=== PATIENT | female | born 1985 | race Caucasian/White ===

== ENCOUNTER 2024-04-03 08:56 | Emergency (ER) | payer BC, SELFPAY ==
[2024-04-03 08:58] VITALS: BP 156/92
--- NOTE | 2024-04-03 10:00 | ED.GENMED ---
History of Present Illness
General
Chief Complaint: Pneumonia Symptoms
Source: patient
Time Seen by Provider: 04/03/24 09:39
History of Present Illness
History of Present Illness:
This patient is a 38-year-old female who really has not been feeling well for about a week. It started on Wednesday with a 'scratchy throat followed by continued scratchy throat, chills, low-grade fever, headache, cough, and mild shortness of breath
that really started on Wednesday and continues. She went to an urgent care on Wednesday and had a COVID flu and strep test all of which were negative. Her symptoms continued particularly cough which prompted her to go to the emergency department
yesterday. She had a COVID and flu test which were negative and a chest x-ray which was consistent with moderate right-sided pneumonia. She was started on doxycycline. She states that she is vomiting posttussive, and worries that she is not
tolerating the antibiotic. This posttussive vomiting started before taking the antibiotic. She is tearful and frustrated that she continues to be sick. She denies chest pain or pressure, abdominal pain, leg swelling, back pain, neck pain
Past History
Past History
ED Past Medical History: HTN and Other (PCOS)
ED Past Surgical History: Other (Tonsillectomy)
Social History
Tobacco: Non-smoker
Alcohol: None
Drug: None
Personal:
Living: with family
Phy Exam
Physical Exam
Physical Exam:
GENERAL: Alert , in no apparent distress
EYE: pupils equal and reactive
NECK: Supple, no significant adenopathy.
ENT: o/p clr, mmm, no stridor, no drool, voice clear, uvula midline.
CARDIAC: Regular rate and rhythm .
LUNGS: Equal breath sounds bilaterally, no acute respiratory distress, slight Rales noted at right upper base, no retractions, speaks in full sentences easily, no wheezing, no rhonchi, no obvious cough
ABDOMEN: Soft, without focal tenderness, no r/g, no cvat
NEUROLOGICAL: Alert and oriented, no focal neuro deficits
SKIN: Warm and dry, skin intact.
MUSCULOSKELETAL: No edema, well perfused.
PSYCH: Normal and appropriate interaction but tearful given frustration of symptoms
Patient presents to the Emergency Department with ___cough
Number and Complexity of Problems Addressed at the Encounter
� Chronic conditions affecting care:
� Acute Exacerbation and/or Progression of Chronic Illness:
� Differential Diagnosis includes: But not limited to worsening pneumonia, PE, pericarditis, pleurisy, etc.
Amount and/or Complexity of Data to be Reviewed and Analyzed
� I performed an independent evaluation of and my interpretation is:
EKG:
CT:
Xrays:
Laboratory Studies: Unremarkable
Other:
� Review of other/old records reveals: Review of chest x-ray images from yesterday from patient's records that she brought with her, patient has an obvious right middle lobe pneumonia, no PTX noted
� Clinical information was obtained by an independent historian:
� Prescriptions/Medications Considered but not given:
� Further testing considered but not performed:
Risk of Complications and/or Morbidity or Mortality of Patient Management
� Social determinants of health affecting care:
� Discussion with other providers (PCP, Hospitalists, Consultants, etc):
� Escalation of care including admission/observation vs risk of discharge considered: Long discussion with patient including risk and benefits of adding antibiotics for potential resistant strep. Ultimate agreement with shared
decision making is to add Augmentin to the doxycycline she is already taking. With her vomiting, she describes it as purely posttussive and not food products. Discussed with her importance of hydration, cough management as an outpatient, continued
doxycycline and adding this medication as well as reasons to return the emergency department importance of close follow-up. Patient is extremely well-appearing, pulse ox remains normal, respiratory rate normal, etc.
Course
Orders/Labs/Results
Orders:
Orders
04/03/24 09:58
Cardiac Monitoring- Treatment ONCE
0.9% Sodium Chloride 1000 ml [Nss] 1,000 ml IV BOLUS
Pulse Ox/cont/shift [RESP] Stat
Quantity: 1
04/03/24 10:26
Basic Metabolic Panel Urgent
Complete Blood Count/No Diff Urgent
04/03/24 11:31
Amoxicillin 875 mg/Clav 125 mg [Augmentin 875 mg/125 mg] 1 tablet PO NOW STA
Abnormal Lab Results
04/03/24
10:26
Glucose 108 H mg/dl
(70-99)
04/03/24 10:26
04/03/24 10:26
Vital Signs
Initial and Last Documented VS:
Initial Vital Signs
Temp Pulse Resp BP Pulse Ox
98.6 F 103 16 156/92 98
04/03/24 08:58 04/03/24 08:58 04/03/24 08:58 04/03/24 08:58 04/03/24 08:58
Last Documented Vital Signs
Temp Pulse Resp BP Pulse Ox
98.6 F 82 16 120/74 96
04/03/24 08:58 04/03/24 10:19 04/03/24 10:19 04/03/24 10:19 04/03/24 10:19
*Critical Care Note
Total Time (30-74mins, 75-104mins- exclusive of procedures): Not Applicable
Update Note
Update Note:
Patient presents to the Emergency Department with
Number and Complexity of Problems Addressed at the Encounter
� Chronic conditions affecting care:
� Acute Exacerbation and/or Progression of Chronic Illness:
� Differential Diagnosis includes:
Amount and/or Complexity of Data to be Reviewed and Analyzed
� I performed an independent evaluation of and my interpretation is:
EKG:
CT:
Xrays:
Laboratory Studies:
Other:
� Review of other/old records reveals:
� Clinical information was obtained by an independent historian:
� Prescriptions/Medications Considered but not given:
� Further testing considered but not performed:
Risk of Complications and/or Morbidity or Mortality of Patient Management
� Social determinants of health affecting care:
� Discussion with other providers (PCP, Hospitalists, Consultants, etc):
� Escalation of care including admission/observation vs risk of discharge considered:
ED Attending Note
-
Portions of this chart may have been created with voice recognition software.� Occasional wrong word or��sound alike� substitutions may have occurred due to the inherent limitations of voice recognition software.
Discharge Plan
Departure
Patient Disposition: Home (Routine Discharge)
Date of Disposition: 04/03/24
Time of Disposition: 11:29
Patient with high blood pressure during this ER visit?: Yes
Condition: Good
Discharge Problem:
Pneumonia
Instructions: Pneumonia, Adult (DC), BLOOD PRESSURE
Prescriptions:
New
amoxicillin-pot clavulanate 875-125 mg tablet
1 tab PO BID Qty: 14 0RF
ondansetron HCl 4 mg tablet
4 mg PO Q8H PRN (Reason: nausea and vomiting) 4 Days Qty: 7 0RF
Referrals:
Torres Moody IV, DO [Family Provider] - Follow up in 2-3 days
Activity Restrictions/Additional Instructions:
IF YOU DEVELOP SHORTNESS OF BREATH, CHEST PAIN, PERSISTENT FEVER, DIZZINESS, SWELLING, GET WORSE, DO NOT GET BETTER OR OTHER WORRISOME SIGNS, PLEASE RETURN TO THE ER IMMEDIATELY!
Interventions
Interventions:
*Risk Screen - Suicide Last Done: 04/03/24 10:19
*General Assessment Last Done: 04/03/24 10:19
*Neglect/Abuse Screening Last Done: 04/03/24 10:19
ED- Fall Risk Assessment Last Done: 04/03/24 10:19
*ED COVID-19 Vaccine History Last Done: 04/03/24 10:19
ED- Cardiac Assessment Last Done: 04/03/24 10:19
ED- Pulmonary Assessment Last Done: 04/03/24 10:19
Discharge Date and Time
Print Language: PU[place] R[place]
[2024-04-03 10:19] VITALS: BP 120/74; BMI 27.3
[2024-04-03] MEDS: NSS 1000 IV (10:26)
[2024-04-03 10:37] LABS: Hematocrit 38.8 % (37.0-47.0); Hemoglobin 13.7 g/dL (12.0-16.0); Mean Corp Hgb Conc. 35.3 g/dL (33.0-37.0); Mean Corpuscular Hgb 30.6 pg (27.0-31.0); Mean Corpuscular Volume 86.6 fL (81.0-99.0); Mean Platelet Volume 10.3 fL (7.4-10.4); Platelet Count 210 10^3/uL (130-400); Red Blood Cell Count 4.48 10^6/uL (4.20-5.40); White Blood Cell Count 6.8 10^3/uL (4.8-10.8)
[2024-04-03 10:59] LABS: Blood Urea Nitrogen 7 mg/dl (7-17); Calcium 8.7 mg/dl (8.4-10.2); Carbon Dioxide 27 mmol/L (22-30); Chloride 100 mmol/L (98-107); Estimated Creatinine Clearance 123 ml/min; Glucose 108 mg/dl (70-99); Potassium 4.3 mmol/L (3.5-5.1); Sodium 135 mmol/L (135-145); eGFR > 60.00
[2024-04-03 11:00] VITALS: BP 107/75
[2024-04-03] MEDS: AUGMENTIN 875 MG/125 MG 1 TABLET PO (11:52)
--- NOTE | 2024-04-03 13:06 | ED.GENMED ---
History of Present Illness
General
Chief Complaint: Pneumonia Symptoms
Time Seen by Provider: 04/03/24 09:39
Past History
Past History
ED Past Medical History: HTN and Other (PCOS)
ED Past Surgical History: Other (Tonsillectomy)
Social History
Tobacco: Non-smoker
Alcohol: None
Drug: None
Personal:
Living: with family
Course
Orders/Labs/Results
Orders:
Orders
04/03/24 09:58
Cardiac Monitoring- Treatment ONCE
0.9% Sodium Chloride 1000 ml [Nss] 1,000 ml IV BOLUS
Pulse Ox/cont/shift [RESP] Stat
Quantity: 1
04/03/24 10:26
Basic Metabolic Panel Urgent
Complete Blood Count/No Diff Urgent
04/03/24 11:31
Amoxicillin 875 mg/Clav 125 mg [Augmentin 875 mg/125 mg] 1 tablet PO NOW STA
Abnormal Lab Results
04/03/24
10:26
Glucose 108 H mg/dl
(70-99)
04/03/24 10:26
04/03/24 10:26
Vital Signs
Initial and Last Documented VS:
Initial Vital Signs
Temp Pulse Resp BP Pulse Ox
98.6 F 103 16 156/92 98
04/03/24 08:58 04/03/24 08:58 04/03/24 08:58 04/03/24 08:58 04/03/24 08:58
Last Documented Vital Signs
Temp Pulse Resp BP Pulse Ox
98.6 F 78 26 107/75 98
04/03/24 08:58 04/03/24 11:45 04/03/24 11:45 04/03/24 11:00 04/03/24 11:45
ED Attending Note
-
Portions of this chart may have been created with voice recognition software.� Occasional wrong word or��sound alike� substitutions may have occurred due to the inherent limitations of voice recognition software.
Discharge Plan
Departure
Patient Disposition: Home (Routine Discharge)
Date of Disposition: 04/03/24
Time of Disposition: 11:29
Patient with high blood pressure during this ER visit?: Yes
Condition: Good
Discharge Problem:
Pneumonia
Instructions: Pneumonia, Adult (DC), BLOOD PRESSURE
Prescriptions:
New
amoxicillin-pot clavulanate 875-125 mg tablet
1 tab PO BID Qty: 14 0RF
ondansetron HCl 4 mg tablet
4 mg PO Q8H PRN (Reason: nausea and vomiting) 4 Days Qty: 7 0RF
Referrals:
Torres Moody IV, DO [Family Provider] - Follow up in 2-3 days
Activity Restrictions/Additional Instructions:
IF YOU DEVELOP SHORTNESS OF BREATH, CHEST PAIN, PERSISTENT FEVER, DIZZINESS, SWELLING, GET WORSE, DO NOT GET BETTER OR OTHER WORRISOME SIGNS, PLEASE RETURN TO THE ER IMMEDIATELY!
Interventions
Interventions:
*Risk Screen - Suicide Last Done: 04/03/24 10:19
*General Assessment Last Done: 04/03/24 10:19
*Neglect/Abuse Screening Last Done: 04/03/24 10:19
ED- Fall Risk Assessment Last Done: 04/03/24 10:19
*ED COVID-19 Vaccine History Last Done: 04/03/24 10:19
*Nursing Disposition Last Done: 04/03/24 12:04
ED- Cardiac Assessment Last Done: 04/03/24 10:19
ED- Pulmonary Assessment Last Done: 04/03/24 10:19
Discharge Date and Time
Discharge Date/Time: 04/03/24 12:10
Print Language: HONDURAN
== END 2024-04-03 12:10 | disposition home or self-care (01) ==
LOC: EMR 08:56
PROVIDERS: EMERGENCY PHYSICIAN Emergency Medicine; FAMILY PHYSICIAN Family Medicine
DX: J18.9 Pneumonia, unspecified organism (principal); I10 Essential (primary) hypertension; E28.2 Polycystic ovarian syndrome
CPT/HCPCS: 99283; 96360; 80048; 85027

== ENCOUNTER → 2024-10-09 08:03 | Outpatient (REF) | payer BC, SELFPAY | LOC: RAD 08:03 | PROVIDERS: ATTENDING PHYSICIAN Internal Medicine Cardiovascular Disease; FAMILY PHYSICIAN Family Medicine | DX: R07.89 Other chest pain (principal); I10 Essential (primary) hypertension; R06.00 Dyspnea, unspecified | CPT/HCPCS: 75574; Q9967 ==